=== PATIENT | female | born 1950 | race Caucasian/White ===

== ENCOUNTER 2016-04-23 16:08 | Emergency (ER) | payer MEDICARE, MEDICAID ==
[~2016-04-23] VITALS: Ht 165.1 cm; Wt 113.4 kg
[~2016-04-23 16:08] MED LIST: AMLO5TAB PO; ANTIVERT GENERI25 MG PO; CARAFATE1 GM/10 ML PO; CITALOPRAM20 MG PO; CLONIDINE 0.2M0.2 MG PO; CLOPIDOGREL75 MG PO; CRESTOR20 MG PO; GABAPENTIN 600600 MG PO; HYDROCHLOROTH12.5 M1 PO; HYDROCODONE/ACE1 TA5 PO; LASIX20 MG PO; LEVEMIR FLEX100 U/ML SC; LOSARTAN POTAS100 MG PO; METOCLOPRAMIDE H5 MG PO; MICRO-K 10 MEQ10 MEQ PO; NOVOLOG FLEX100 U/ML SC; NOVOLOG MI100 UNITS1 SC; OMEPRAZOLE20 MG PO; OXYCODONE HCL10 M1 PO; PROMETHAZINE HC25 M1 PO; XANAX 1MG TABLET1 MG PO
[2016-04-23] MEDS ORDERED: TRAMADOL 50MG T50 M1 PO (17:02)
[2016-04-23 17:24] LABS: UTC STREP SCREEN NOT DETECTED (NOTDETECTED)
--- NOTE | 2016-04-23 17:51 | [facility]gent [facility] Report ---
History of Present Issue Date/Time Seen by Provider 04/23/16 2322 Visit Reason Pt arrived:Wheelchair Presenting Problem:STATES SHE HAS A SORE THROAT AND HEADACHE. PT HAS BEEN EXPOSED TO THE FLU AND STREP LAST WEEK. UPSET STOMACH Location if Accident: Onset of symptoms date/time:/ or onset unknown for:MEDICAL HX UNKNOWN Have you (or family members/close friends) recently traveled outside the [place]? N If Yes, where/when: Have you had exposure to infectious disease within the past month? TB? Other? Specify: With daughter c/o sudden onset fever, aches, chills, cough 3 days ago and right ear pain 2 days ago. Daughter's family has had flu so daughter tried to get pt to come in but wouldn't. Tried to see [facility] PCP today but out of office. Denies SOA or wheezing. Tylenol helping. Can't take ibuprofen. Coricidin hbp and robitussin help "but can't kick this". Has had flu vaccine. Source patient Exam Limitations no limitations ALLERGIES Coded Allergies: Iodinated Contrast Media - Oral and (Iodinated Contrast Media - IV Dye) (Severe, S-DIFF. BREATHING 10/25/15) Penicillins (I-HIVES 10/25/15) celecoxib (From CELEBREX) (SWELLING 10/25/15) ibuprofen (S-BLISTERING WELTS 10/25/15) meloxicam (S-BLISTERING WELTS 10/25/15) rofecoxib (From VIOXX) (I-HIVES 10/25/15) Home Medications Active Scripts OXYCODONE HCL (Oxycodone HCl) 10 MG PO TID #90 TAB Prov: 05/15/15 Omeprazole (Omeprazole 20MG) 20 MG PO DAILY #14 ECC Prov: 04/10/14 Sucralfate (Carafate Oral Susp) 1 GM PO ACHS #14 EACH Prov: 04/10/14 Meclizine Hcl (Antivert) 25 MG PO Q8HP PRN VERTIGO #30 TAB Prov: 10/09/15 Reported Medications Losartan Potassium (Losartan 100MG) 100 MG PO DAILY Clonidine Hydrochloride (Clonidine 0.2MG Tab) 0.2 MG PO DAILY Amlodipine Besylate (Amlodipine) 5 MG PO DAILY CITALOPRAM HYDROBROMIDE (Citalopram HBr) 20 MG PO DAILY PROMETHAZINE HCL (Promethazine 25mg Tab) 25 MG PO Q6HP PRN N/V CLOPIDOGREL BISULFATE (Clopidogrel 75MG) 75 MG PO DAILY Metoclopramide Hydrochloride (Metoclopramide HCl) 5 MG PO BID Hydrochlorothiazide (Hydrochlorothiazide 12.5MG) 12.5 MG PO DAILY Rosuvastatin Calcium (Crestor) 20 MG PO QHS Insulin Aspart, Recombinant (Novolog Flexpen) 34 UNITS SC TID Insulin Detemir (Levemir Flextouch) 60 U SC BID Ins Asp-Prt 70/Asp 30(Nvlogmx) (Novolog Mix 70-30 Flexpen Syrn) 14 ML SC DAILY Gabapentin (Gabapentin 600MG) 600 MG PO QID Alprazolam (Xanax 1MG) 1 MG PO BID HYDROCODONE/ACETAMINOPHEN (Hydrocodon-Acetaminophn 10-325) 1 TAB PO TID Furosemide (Lasix) 20 MG PO DAILY POTASSIUM CHL (Potassium Chloride) 10 MEQ PO DAILY TRAMADOL HCL (Tramadol) 50 MG PO TID History Medical History General CAD? Yes Angina: Yes MA: Yes Hypertension? Yes Hyperlipidemia? Yes CHF? Yes DVT? No PE? No COPD? Yes Asthma? Yes Anemia? No GERD? No Gastric ulcers? No GI Bleed? No Hernia? Yes Thyroid Problems? No Hypothyroidism? No CVA? No Seizures? No Diabetes? Yes Insulin Dependent: No Insulin Pump: No Home FSBS? Yes Renal Insuffiency? No UTI? Yes Stones? No BPH? No GB Disease: Yes Nephritic Syndrome? No Asplenia? No Hepatitis? No Sickle Cell Disease? No Arthritis? Yes Migraines? No Cataracts? Yes Glaucoma? No MRSA? Yes HIV? No TB? No Anxiety? No Depression? No Cancer? No More? No Immunization HX DT/Tetanus Unknown Surgical Hx Previous Surgery?Y HYSTERECTOMY NEETA Coronary Artery Bypass LUMPECTOMY RIGHT S.O. APPY TUBAL Social History Smoking Hx Smoker: Never Smoker Tobacco: No Packs/day N/A Alcohol Alcohol: No Review of Systems All Other Systems Reviewed and Negative Constitutional see HPI, malaise, denies weakness Eyes denies no symptoms reported ENT nose discharge, nose congestion, throat pain. denies: ear discharge. Respiratory see HPI Cardiovascular denies chest pain Musculoskeletal see HPI Skin denies rash Psychiatric/Neurological headache (intermittently) Physical Exam Vital Signs Vital Signs Date Time Temp Pulse Resp B/P Pulse O2 O2 Flow FiO2 Ox Delivery Rate 04/23 1658 99.4 75 20 93 Recheck BP, 116/67 (BRYAN CALDERÓN APRN) General Appearance normal appearance, no apparent distress Eye Exam - bilateral eye normal exam Ear, Nose, Throat right TM bright red, bulging, tender, dull without visible landmarks; left TM bright red, slightly retracted, dull, normal pharynx except scant bloody PND from flu test that induced nose bleed, nares: bleeding has stopped, boggy turbinates Neck non-tender, supple Respiratory Status Yes: non productive cough. No: respiratory distress. Lung Sounds anterior: lungs clear. posterior: lungs clear. bilateral: lungs clear. Cardiovascular regular rate/rhythm, no murmur Neurologic alert Skin warm/dry Lymphatic no adenopathy (cervical) Medical Decision Making LABS/Meds/Orders Pt receiving controlled substance in ED? No Results/Orders Laboratory Tests 04/23/16 171: Influenza Type A Ag DETECTED H, Influenza Type B Ag NOT DETECTED, Group A Strep Screen NOT DETECTED Current Medication Orders Sig/Donna Start time Last Medication Dose Route Stop Time Status Admin Cefdinir 300 MG ONCE ONE 04/23 1800 CANr PO 04/23 180 Orders Procedure Date/time Status [facility] STREP SCREEN 04/23 171 Complete [facility] FLU A,B 04/23 171 Complete Departure Departure Time of Disposition 180 Disposition DC Home or Self Care(routine) Clinical Impression Primary Impression: Influenza A Secondary Impressions: Right otitis media Qualifiers: Otitis media type: unspecified Chronicity: unspecified Qualified Code: H66.91 - Otitis media, unspecified, right ear Condition STABLE Referrals JANNIE CORDOVA (Family) Immediately for new or worsening symptoms Call tomorrow and tell them you have flu and ear infection, schedule follow up. Patient Instructions DI for Influenza -- Adult, DI for Otitis Media (Middle Ear Infection)-Child Additional Instructions You have the flu but since your symptoms have been longer than 72 hours, Tamiflu is not indicated. LOTS of fluids, rest and tylenol as needed for pain/fever. Start antibiotic tonight for ear infection. See primary care or return to ER immediately for new or worsening symptoms. Call primary care tomorrow to report diagnosis Discharge Counseling Counseled pt/family regarding diagnosis, test results, medications/RX, home care, follow up needs Prescriptions Current Visit Scripts CEFDINIR (Cefdinir) 300 MG PO BID #20 CAP at 0369
[2016-04-23] MEDS ORDERED: CEFDINIR 300MG300 MG PO (18:14)
[2016-04-23 18:20] VITALS: BP 11/67
== END 2016-04-23 18:21 | disposition home or self-care (01) ==
LOC: UTC 16:08
PROVIDERS: Nurse Practitioner Family
DX: J10.1 Influenza due to other identified influenza virus with other respiratory manifestations (principal); H66.91 Otitis media, unspecified, right ear; I10 Essential (primary) hypertension

== ENCOUNTER → 2016-12-04 | Outpatient (CLI) | payer MEDICARE, MEDICAID ==
[~2016-12-04] MED LIST changes: +CEFDINIR 300MG300 MG PO; +TRAMADOL 50MG T50 M1 PO
[2016-12-04 12:09] LABS: HEMOGLOBIN 14.1 g/dL (12.2-16.2); LYMPH # 2.1 K/mm3 (0.7-4.5); LYMPH % 32.1 % (10-50.0)
[2016-12-04 12:11] LABS: BUN 24 mg/dL (7-18)
[2016-12-04 12:25] LABS: GFR (ESTIMATED) 62 ML/MIN (59-)
== END ==
LOC: LAB 11:18
PROVIDERS: Physician Assistant
DX: I10 Essential (primary) hypertension (principal); E55.9 Vitamin D deficiency, unspecified; E11.9 Type 2 diabetes mellitus without complications; E03.9 Hypothyroidism, unspecified; E78.5 Hyperlipidemia, unspecified